=== PATIENT | male | born 1965 | race Caucasian/White ===

== ENCOUNTER 2020-08-17 14:56 | Emergency (ER) | payer MEDICARE, MEDICAID ==
--- NOTE | 2020-08-17 15:43 | EDM.PDOC ---
ED HPI GENERAL MEDICAL PROBLEM - General Chief Complaint: General Stated Complaint: swollen arm- post surgery Time Seen by Provider: 08/17/20 15:21 Source of Information: Reports: Patient History Limitations: Reports: No Limitations - History of Present Illness INITIAL COMMENTS - FREE TEXT/NARRATIVE: Patient presents to the emergency room for increased pain swelling redness and warmth to touch to his left forearm. He currently has his arm in a sling. Patient is postop day #2 for left forearm fistula which was done at [facility] in [place] by Dr. Gomez. Patient noticed symptoms last night. Denies any fever chills or body aches. Patient states the pain is 10 out of 10 if he barely touches his left arm. Pain is minimal at rest. does have some tingling to the distal fingertips on left arm. The patient notes that the pain and swelling and redness was much worse yesterday which the redness has improved some today. Patient is a known type I diabetic insulin dependent end-stage renal disease in which she has been doing peritoneal dialysis. left arm Pain Score (Numeric/FACES): 5 - Related Data Allergies Allergy/AdvReac Type Severity Reaction Status Date / Time No Known Allergies Allergy Verified 08/17/20 15:35 Home Meds: Home Meds Furosemide 20 mg PO DAILY 09/30/18 [History] Insulin Degludec [Tresiba Flextouch U-200] 34 units SUBCUT DAILY@1800 09/30/18 [History] Omeprazole 20 mg PO DAILY 09/30/18 [History] Quinapril HCl 5 mg PO DAILY 09/30/18 [History] atorvaSTATin Calcium [Atorvastatin Calcium] 80 mg PO DAILY 09/30/18 [History] cloNIDine HCL [Catapres] 0.1 mg PO TID 09/30/18 [History] Calcium Acetate [PhosLo] 667 mg PO ASDIRECTED 08/17/20 [History] Insulin Aspart [NovoLOG] 8 unit SUBCUT TID 08/17/20 [History] Past Medical History Cardiovascular History: Reports: Heart Murmur, High Cholesterol, Hypertension Respiratory History: Reports: Bronchitis, Recurrent Gastrointestinal History: Reports: Chronic Constipation, Chronic Diarrhea, Hemorrhoids Genitourinary History: Reports: Dialysis, Peritoneal Musculoskeletal History: Reports: Fracture Neurological History: Reports: Neuropathy, Diabetic Psychiatric History: Reports: None Endocrine/Metabolic History: Reports: Diabetes, Type I Hematologic History: Reports: None Immunologic History: Reports: None Dermatologic History: Reports: None, Other (See Below) Other Dermatologic History: fatty tumors - Infectious Disease History Infectious Disease History: Reports: Chicken Pox, Measles, Mononucleosis, Mumps, Shingles, TB - Past Surgical History HEENT Surgical History: Reports: Tonsillectomy Cardiovascular Surgical History: Reports: None Respiratory Surgical History: Reports: None GI Surgical History: Reports: Colonoscopy, Polypectomy Endocrine Surgical History: Reports: None Neurological Surgical History: Reports: None Musculoskeletal Surgical History: Reports: None Dermatological Surgical History: Reports: None Social & Family History - Family History Family Medical History: Noncontributory - Tobacco Use Tobacco Use Status *Q: Never Tobacco User - Caffeine Use Caffeine Use: Reports: Soda - Recreational Drug Use Recreational Drug Use: No ED ROS GENERAL - Review of Systems Review Of Systems: Comprehensive ROS is negative, except as noted in HPI. Constitutional: Denies: Fever, Chills, Weakness Respiratory: Denies: Shortness of Breath Cardiovascular: Denies: Chest Pain Musculoskeletal: Reports: Other Skin: Reports: Erythema Neurological: Reports: Paresthesia, Other (distal finger left hand) ED EXAM, GENERAL - Physical Exam Exam: See Below Exam Limited By: No Limitations General Appearance: Alert, WD/WN, No Apparent Distress Peripheral Pulses: 1+: Radial (L), 2+: Radial (R) Extremities: Normal Capillary Refill, Other (left forearm pain and swelling erythema. No drainage to surgical sites) Neurological: Alert, Oriented Psychiatric: Normal Affect, Normal Mood Skin Exam: Dry, Erythema, Increased Warmth Course - Vital Signs Last Recorded V/S: Last Vital Signs Temp 97.7 F 08/17/20 15:20 Pulse 88 08/17/20 15:20 Resp 16 08/17/20 15:20 BP 111/76 08/17/20 15:20 Pulse Ox 97 08/17/20 15:20 - Re-Assessments/Exams Free Text/Narrative Re-Assessment/Exam: 08/17/20 16:14 information sent on cellulitis, discussed close f/u. I was concern for postoperative infection of cellulitis due to the increased pain swelling erythremia. I did consult my on-call physician Dr. ZAVALA. He suggested the patient arrived to [facility] and be admitted and have surgical consult. I talked to the hospitalist absorption and adsorption engineer and spoke with Dr. Gomez who did the procedure 2 days ago. The surgeon had no concerns for infection and he states that the symptoms are very common after this procedure. He suggested patient to follow-up in the clinic tomorrow or Saturday at any time if he has concerns for worsening condition. I discussed with the patient the patient discharged to go home on pain control and postoperative management. Patient understands a low threshold on returning to Dr. Gomez's office or the ED for any worsening conditions. Departure - Departure Time of Disposition: 15:48 Disposition: Home, Self-Care 01 Condition: Good Clinical Impression: Post-operative pain, Fistula - Discharge Information *PRESCRIPTION DRUG MONITORING PROGRAM REVIEWED*: No *COPY OF PRESCRIPTION DRUG MONITORING REPORT IN PATIENT RAFAEL: No Instructions: Cellulitis, Adult, Pain Relief Before and After Surgery, Paresthesia, [id number] Referrals: Annabel Draper MD [Primary Care Provider] - Forms: ED Department Discharge Additional Instructions: Please follow up with Dr. Gomez in the clinic tomorrow or Saturday for recheck. Return to Emergency room if you develop fevers chills or ill feeling, or if the redness continues to spread up the arm or down the hand. Or if you loose sensation in your hand or have decreased cap refill or pain worsens. have a low threshold on close follow up. Sepsis Event Note (ED) - Evaluation Sepsis Screening Result: No Definite Risk - Focused Exam Vital Signs: Vital Signs Temp Pulse Resp BP Pulse Ox 08/17/20 15:20 97.7 F 88 16 111/76 97
== END 2020-08-17 16:00 | disposition home or self-care (01) ==
LOC: KA.ED 14:56
DX: G89.18 Other acute postprocedural pain (principal); L98.8 Other specified disorders of the skin and subcutaneous tissue; E78.00 Pure hypercholesterolemia, unspecified; I10 Essential (primary) hypertension; E10.42 Type 1 diabetes mellitus with diabetic polyneuropathy; Z79.899 Other long term (current) drug therapy
CPT/HCPCS: 99283; 99284